=== PATIENT | female | born 1975 | race Caucasian/White ===

== ENCOUNTER 2024-03-02 10:53 | Outpatient (CLI) | payer BC, SELFPAY | END 2024-03-02 10:54 | disposition home or self-care (01) | PROVIDERS: PCP Physician Assistant Medical; Visit Provider Physician Assistant Medical | DX: Z00.00 Encounter for general adult medical examination without abnormal findings (principal); E78.5 Hyperlipidemia, unspecified; Z13.0 Encounter for screening for diseases of the blood and blood-forming organs and certain disorders involving the immune mechanism; Z13.1 Encounter for screening for diabetes mellitus; Z13.29 Encounter for screening for other suspected endocrine disorder; Z11.59 Encounter for screening for other viral diseases | CPT/HCPCS: 80053; 80061; 84443; 86703; 86803 ==

== ENCOUNTER 2024-03-06 13:33 | Outpatient (CLI) | payer BC, SELFPAY ==
--- NOTE | 2024-03-06 13:40 | CRLHL7_ITS ---
For Patients: As a result of the Century Cures Act, medical imaging exams and procedure reports are released immediately into your electronic medical record. You may view this report before your referring provider. If you have questions, please contact your health care provider. BILATERAL SCREENING MAMMOGRAM WITH COMPUTER-AIDED DETECTION AND TOMOSYNTHESIS TECHNIQUE: CC, MLO and Implant displaced views were obtained. These mammographic images have been obtained using full-field digital technique. These mammographic images were interpreted with the benefit of computer-aided detection. Breast Tomosynthesis was used in this interpretation. COMPARISON FILM: 09/13/20, 05/12/19, 02/14/18. FINDINGS: There are scattered areas of fibroglandular density. IMPRESSION: There is no radiographic evidence for malignancy. ASSESSMENT: BI-RADS Category 2: Benign RECOMMENDATION: Routine screening mammogram in 1 year. A lay language report of this examination will be provided to the patient. Maykel Peters M.D. Diagnostic Radiologist [email or web address] SP/Dictated by: Maykel Peters MD @ 03/09/2024 10:24:00 AM (Electronically Signed)
== END 2024-03-06 13:34 | disposition home or self-care (01) ==
LOC: MAMMO 13:34
PROVIDERS: PCP Physician Assistant Medical; Visit Provider Physician Assistant Medical
DX: Z12.31 Encounter for screening mammogram for malignant neoplasm of breast (principal)
CPT/HCPCS: 77063; 77067

== ENCOUNTER 2024-09-24 11:54 | Outpatient (CLI) | payer BC, SELFPAY | END 2024-09-24 11:55 | disposition home or self-care (01) | LOC: NFLDREF 09-30 01:18 | PROVIDERS: PCP Physician Assistant Medical; Referring Provider Physician Assistant Medical; Visit Provider Physician Assistant Medical | DX: Z13.6 Encounter for screening for cardiovascular disorders (principal); R93.1 Abnormal findings on diagnostic imaging of heart and coronary circulation | CPT/HCPCS: 83695 ==